=== PATIENT | female | born 1985 | race Caucasian/White ===

== ENCOUNTER → 2020-11-08 | Outpatient (CLI) | payer BC ==
[~2020-11-08] MED LIST: PROCARDIA XL30 MG PO
[2020-11-08 09:08] LABS: HEMOGLOBIN 14.5 gm/dl (12.3-15.3); RED BLOOD COUNT 4.85 M/UL (4.00-5.10); WHITE BLOOD COUNT 8.2 K/UL (4.5-11.0)
[2020-11-08 09:34] LABS: BUN/CREATININE RATIO 16 (0-10)
== END ==
LOC: LAB 08:40
PROVIDERS: Internal Medicine
DX: Z13.220 Encounter for screening for lipoid disorders (principal); Z13.1 Encounter for screening for diabetes mellitus; R53.83 Other fatigue; I10 Essential (primary) hypertension; E55.9 Vitamin D deficiency, unspecified; Z79.899 Other long term (current) drug therapy
CPT/HCPCS: 36415; 80053; 80061; 82607; 82746; 84436; 84439; 84443; 85025

== ENCOUNTER → 2021-12-02 | Outpatient (CLI) | payer BC | LOC: EXRD 07:50 | DX: I10 Essential (primary) hypertension (principal) | CPT/HCPCS: 93975 ==

== ENCOUNTER → 2022-01-17 | Outpatient (CLI) | payer BC | LOC: EMI 13:31 | DX: M46.94 Unspecified inflammatory spondylopathy, thoracic region (principal); M51.24 Other intervertebral disc displacement, thoracic region; M50.223 Other cervical disc displacement at C6-C7 level; M48.02 Spinal stenosis, cervical region | CPT/HCPCS: 72146 ==